=== PATIENT | female | born 1945 | race Caucasian/White ===

== ENCOUNTER 2018-11-17 16:05 | Emergency (ER) | payer MEDICARE ==
--- NOTE | 2018-11-17 17:09 | ED ---
Hypertension - HPI Summary HPI Summary: A 73 y/o female accompanied by her presents to [facility] with a chief complaint of high blood pressure today. She was at a pain clinic for pain in her back when her blood pressure was measured to be high for three times. Patient states that when he took it manually it was much better but still want her to get checked out. She was instructed to come to her PCP or to the ED and since her PCP couldnt see her immediately, she came to the ED. BP in ED room is 193/95. She reports fatigue but denies N/V/D, dysuria or hematuria. Patient denies chest pain or shortness of breath. Patient denies fevers or chills. No cough. She takes Losartan prescribed by Dr. Ghosh. She has been trying to not eat flour and sugar recently which she is not sure if it's affecting her tiredness. Patient does take morphine extended release 3 times a day as needed. Patient last dose was approximately 7:00 this morning. Patient does have immediate release that she can take for breakthrough pain. Patient hasn't taken any morphine since 7:00 this morning. Patient noted to have a prescription for Lasix. Patient states she ran out to stop taking Ecotrin feel bloated. Patient with a history of borderline kidney function, hypertension, chronic back pain. Patient denies a history of cardiac disease. Patient with previous seen by Dr. Butler but hasn't seen him in over a year. SHx tonsillectomy, two back surgeries, cataract removal. She reports that her BP was fine for surgery. She denies a Hx of [place]. Patient's medication reviewed this visit. - History of Current Complaint Chief Complaint: EDGeneral Stated Complaint: HIGH BP PER PT Time Seen by Provider: 11/17/18 16:18 Hx Obtained From: Patient Onset/Duration: Started Hours Ago, Still Present Timing: Constant, Lasting Hours Reported Blood Pressure Prior To Arrival: 225/77 at triage Aggravating Factor(s): Nothing Alleviating Factor(s): Nothing Associated Signs & Symptoms: Pain - back, Other: - fatigue - Allergies/Home Medications Allergies/Adverse Reactions: Allergies Allergy/AdvReac Type Severity Reaction Status Date / Time Tetracyclines Allergy Rash Verified 11/17/18 15:06 Home Medications: Home Medications BuPROPion XL* [Bupropion XL*] 300 mg PO DAILY 11/17/18 [History Confirmed ] Esomeprazole(NF) [NexIUM(NF)] 40 mg PO DAILY 11/17/18 [History Confirmed ] Losartan TAB* [Cozaar TAB*] 50 mg PO DAILY 11/17/18 [History Confirmed 11/17/18] Magnesium Oxide [Magnesium] 500 mg PO DAILY 11/17/18 [History Confirmed 11/17/18 ] Meloxicam(NF) [Mobic(NF)] 15 mg PO DAILY 11/17/18 [History Confirmed 11/17/18] Morphine Sulfate 15 mg PO TID 11/17/18 [History Confirmed 11/17/18] Sennosides/Docusate Sodium [Senna-S Tablet] 2 tab PO DAILY 11/17/18 [History Confirmed 11/17/18] Temazepam CAP* [Restoril CAP*] 15 mg PO BEDTIME PRN 11/17/18 [History Confirmed 11/17/18] PMH/Surg Hx/FS Hx/Imm Hx Previously Healthy: Yes Endocrine/Hematology History: Reports: Hx Anticoagulant Therapy - asa Cardiovascular History: Reports: Hx Hypertension, Other Cardiovascular Problems/ Disorders - Blood clots left leg GI History: Reports: Hx Gastroesophageal Reflux Disease History: Comment Only: Hx Renal Disease - abnormal gfr Musculoskeletal History: Reports: Hx Arthritis, Hx Back Problems Denies: Hx Osteoporosis Sensory History: Reports: Hx Contacts or Glasses Opthamlomology History: Reports: Hx Contacts or Glasses Neurological History: Reports: Other Neuro Impairments/Disorders - spinal tumor removed - Cancer History Hx Chemotherapy: No Hx Radiation Therapy: No - Surgical History Surgery Procedure, Year, and Place: benign SPINAL TUMOR 2006/DISCS REMOVES, LOWER BACK, BILATERAL CARPAL TUNNEL SX.?lysis of adhesions,henia repair as an infant Hx Anesthesia Reactions: No Infectious Disease History: No Infectious Disease History: Reports: Hx Shingles - comes on during stress Denies: Traveled Outside the [place] in Last 30 Days - Family History Known Family History: Negative: Diabetes - Social History Occupation: Retired Lives: With Family Alcohol Use: None Alcohol Amount: 1-2 drinks every couple months Substance Use Type: Reports: None Substance Use Comment - Amount & Last Used: Morphine and oxycodone Smoking Status (MU): Former Smoker Type: Cigarettes Have You Smoked in the Last Year: No Review of Systems Constitutional: Negative Positive: Fatigue. Negative: Fever Positive: Other - positive: high blood pressure Negative: Vomiting, Diarrhea, Nausea Negative: dysuria, hematuria All Other Systems Reviewed And Are Negative: Yes Physical Exam - Summary Physical Exam Summary: Vital Signs Reviewed: Yes - pt with elevated BP at triage. RN took manual BP at bedside with improvement in reading. A+Ox3, no distress, appropriate Eyes: Conjunctiva Clear, ROSSY. EOM intact and full ENT: Hearing grossly normal TM x 2 clear, mmoist, uvula midline, no exudate, no erythema Neck: Positive: Supple Respiratory: Positive: No respiratory distress, No accessory muscle use + CTA throughout no w/r Cardiovascular: RRR nl s1, s2 no m/r CBT <2 sec no m/r 1+ edema b/l LE not piting abd soft + BS nt/nd no guarding, no distension Musculoskeletal Exam: DENNIS x 4 without difficulty Strength Intact, ROM Intact, pt ambulated without difficulty Neurological: Positive: Alert, + sensation throughout Psychological: Positive: Normal Response To Family Skin: Positive: no rash, no ecchymosis Triage Information Reviewed: Yes Vital Signs On Initial Exam: Initial Vitals Temp Pulse Resp BP Pulse Ox 97.4 F 66 20 225/77 99 11/17/18 16:10 11/17/18 16:10 11/17/18 16:10 11/17/18 16:10 11/17/18 16:10 Diagnostics - Vital Signs Vital Signs Temp Pulse Resp BP Pulse Ox 11/17/18 16:10 97.4 F 66 20 225/77 99 - Laboratory Result Diagrams: 11/17/18 17:34 11/17/18 17:34 Lab Statement: Any lab studies that have been ordered have been reviewed, and results considered in the medical decision making process. Re-Evaluation - Re-Evaluation First Eval Re-Evaluation Time: 17:51 Change: Improved Comment: manual BP is markedly improved. pt ambulated to the bathroom twice without difficulty. Reviewed labs with patient. Patient with a slightly elevated potassium. Also patient with an elevated BUN/creatinine. Review of patient's records urine creatinine is at baseline if not slightly improved. Patient's troponin is 0.05. Suspect this is related to kidney function. Patient has not had a troponin checked at [facility] and greater than 4 years. We will give patient gentle IV hydration and recheck the troponin at the 3 hour damion. Agents EKG is normal sinus any acute ST-T wave changes. Patient comfortable in agreement with plan. We'll prescribe patient Lasix and she states she went out. Encourage patient to contact her PCP in follow-up this week. Patient states agreement with plan. Return precautions discussed. Hypertension Course/Dx - Course Course Of Treatment: Patient presents to emergency department at the direction pain specialist. Patient with history of chronic pain, hypertension, opiates use for her pain, chronic renal insufficiency who states over the last week or so she's been feeling more fatigued. Patient denies chest pain or shortness of breath. Patient has nausea vomiting. Patient was at her scheduled pain management appointment today when he knows her blood pressure was very high. Of note, patient states blood pressure was much better when taken manually. Patient did take O certain this morning. Patient has a prescription for Lasix but she has stopped taking it. Patient without any fevers or chills. Patient without any chest pain. Patient's exam non-concerning except for some edema in her lower extremities. Patient's lungs are clear heart is regular belly is soft. We'll check labs, we will check urine. Discussed with patient at length. If testing is unremarkable and despite we'll discharge home to follow up with Dr. Ta. Patient comfortable in agreement with plan. I did discuss with patient regarding her opiates and allergies maybe contributing to her sedation. Patient takes her scheduled tablet 3 times a day. Patient states however she takes half a tablet for her breakthrough pain that she cut in half. Patient states sometimes she bites of half an is not regulated amount. - Diagnoses Provider Diagnoses: HTN (hypertension) Discharge - Sign-Out/Discharge Documenting (check all that apply): Sign-Out Patient Signing out patient TO: Eddie Jimenez Patient Received Moderate/Deep Sedation with Procedure: No - Discharge Plan Condition: Stable Disposition: HOME Prescriptions: Furosemide [Lasix] 10 mg PO DAILY #21 tablet Patient Education Materials: Hypertension (ED), Fatigue (ED) Referrals: Hailee Ghosh MD [Primary Care Provider] - Additional Instructions: INCREASE LOSARTAN DOSE FROM 50 MG to 100 MG a DAY or RESUME TAKING LASIX RETURN TO THE EMERGENCY DEPARTMENT FOR CHANGING OR WORSENING SYMPTOMS. FOLLOW UP WITH YOUR PRIMARY CARE PROVIDER WITHIN 1 TO 2 DAYS. - Billing Disposition and Condition Condition: STABLE Disposition: Home - Attestation Statements Document Initiated by Scribe: Yes Documenting Scribe: Raz Jackson Provider For Whom Scribe is Documenting (Include Credential): Li Jean MD Scribe Attestation: I, Raz Jackson, scribed for Li Jean MD on 11/22/18 at 0803. Scribe Documentation Reviewed: Yes Provider Attestation: The documentation as recorded by the Raz trinh accurately reflects the service I personally performed and the decisions made by me, Li Jean MD Status of Scribe Document: Viewed
[2018-11-17 17:43] LABS: ABS Basophils 0.1 10^3/ul (0-0.2); ABS Eosinophils 0.1 10^3/ul (0-0.6); ABS Lymphocytes 1.2 10^3/ul (1.0-4.8); ABS Monocytes 0.3 10^3/ul (0-0.8); ABS Nucleated RBC 0 10^3/ul; Eosinophil % 2.8 %; Hematocrit 36 % (33-41); Hemoglobin 11.8 g/dL (12.0-16.0); Lymphocyte % 26.5 %; Mean Corpuscular HGB Conc 33 g/dL (31-36); Mean Corpuscular Hemoglobin 28 pg (27-31); Mean Corpuscular Volume 85 fL (80-97); Mean Platelet Volume 8.6 fL (7.4-10.4); Nucleated Red Blood Cells % 0.1; Platelet Count 168 10^3/uL (150-450); Red Blood Count 4.25 10^6 /uL (3.70-4.87); Red Cell Distribution Width 15 % (10.5-15); White Blood Count 4.7 10^3/uL (3.5-10.8)
[2018-11-17 18:00] LABS: ALT 68 U/L (7-52); AST 68 U/L (13-39); Albumin 3.8 g/dL (3.2-5.2); Albumin/Globulin Ratio 1.1 (1-3); Alkaline Phosphatase 107 U/L (34-104); BUN/Creatinine Ratio 25.5 (8-20); Blood Urea Nitrogen 35 mg/dL (6-24); CO2 Carbon Dioxide 25 mmol/L (22-32); Calcium 9.5 mg/dL (8.6-10.3); Chloride 107 mmol/L (101-111); Creatine Kinase 92 U/L (10-223); Globulin 3.6 g/dL (2-4); Glucose 96 mg/dL (70-100); Magnesium 2.5 mg/dL (1.9-2.7); Sodium 135 mmol/L (135-145); Total Protein 7.4 g/dL (6.4-8.9)
[2018-11-17 18:08] LABS: Anion Gap 3 mmol/L (2-11); Potassium 5.3 mmol/L (3.5-5.0)
[2018-11-17 18:09] LABS: Troponin I 0.05 ng/mL (<0.04)
[2018-11-17] MEDS ORDERED: NS 0.9% 1000 ML** 1,000 ML IV SCH (18:30)
[2018-11-17 19:00] LABS: Urine Appearance Clear; Urine Bacteria Absent (Absent); Urine Bilirubin Negative (Negative); Urine Blood 1+ (Negative); Urine Color Straw; Urine Glucose Negative (Negative); Urine Ketones Negative (Negative); Urine Nitrite Negative (Negative); Urine Protein Negative (Negative); Urine Red Blood Cell Trace(0-2/hpf) (Absent); Urine Specific Gravity 1.006 (1.010-1.030); Urine Squamous Epithelial Cell Present (Absent); Urine Urobilinogen Negative (Negative); Urine White Blood Cell Absent (Absent)
[2018-11-17 21:02] LABS: Troponin I 0.05 ng/mL (<0.04)
--- NOTE | 2018-11-17 21:13 | ED ---
Progress - Progress Note Progress Note: The patient is a 73 year old female who was signed out by Dr. Jean to Dr. Jimenez. The patient had a chief complaint of HTN and was awaiting lab results. Re-Evaluation - Re-Evaluation First Eval Re-Evaluation Time: 17:51 Change: Improved Comment: manual BP is markedly improved. pt ambulated to the bathroom twice without difficulty. Reviewed labs with patient. Patient with a slightly elevated potassium. Also patient with an elevated BUN/creatinine. Review of patient's records urine creatinine is at baseline if not slightly improved. Patient's troponin is 0.05. Suspect this is related to kidney function. Patient has not had a troponin checked at [facility] and greater than 4 years. We will give patient gentle IV hydration and recheck the troponin at the 3 hour damion. Agents EKG is normal sinus any acute ST-T wave changes. Patient comfortable in agreement with plan. We'll prescribe patient Lasix and she states she went out. Encourage patient to contact her PCP in follow-up this week. Patient states agreement with plan. Return precautions discussed. Course/Dx - Course Course Of Treatment: The patient is a 73 year old female who was signed out by Dr. Jean to Dr. Jimenez. We discussed the patients elevated troponin finding which was mildly elevated and most likely due to her kidney function. The patient was advised to increase her Losartan from 50 mg a day to 100 mg a day. The other option we presented to the patient was to resume taking her Lasix medication. The patient was agreeable to this plan and she will be discharged home with a dx of HTN. - Diagnoses Provider Diagnoses: HTN (hypertension) Discharge - Sign-Out/Discharge Documenting (check all that apply): Patient Departure - Discharge Home, Receiving Sign-Out Receiving patient FROM: Li Jean Patient Received Moderate/Deep Sedation with Procedure: No - Discharge Plan Condition: Stable Disposition: HOME Prescriptions: Furosemide [Lasix] 10 mg PO DAILY #21 tablet Patient Education Materials: Hypertension (ED), Fatigue (ED) Referrals: Hailee Ghosh MD [Primary Care Provider] - Additional Instructions: INCREASE LOSARTAN DOSE FROM 50 MG to 100 MG a DAY or RESUME TAKING LASIX RETURN TO THE EMERGENCY DEPARTMENT FOR CHANGING OR WORSENING SYMPTOMS. FOLLOW UP WITH YOUR PRIMARY CARE PROVIDER WITHIN 1 TO 2 DAYS. - Billing Disposition and Condition Condition: STABLE Disposition: Home - Attestation Statements Document Initiated by Scribe: Yes Documenting Scribe: Aman Baez Provider For Whom Scribe is Documenting (Include Credential): Dr. Eddie Jimenez Scribe Attestation: IAman, scribed for Dr. Eddie Jimenez on 11/18/18 at 0607. Scribe Documentation Reviewed: Yes Provider Attestation: The documentation as recorded by the ushaibeAman accurately reflects the service I personally performed and the decisions made by Dr. Gary [email or web address] Status of Scribe Document: Viewed
[2018-11-17 21:41] VITALS: BP 182/92
== END 2018-11-17 21:40 | disposition home or self-care (01) ==
LOC: ED 16:05
DX: I10 Essential (primary) hypertension (principal); K21.9 Gastro-esophageal reflux disease without esophagitis; M19.90 Unspecified osteoarthritis, unspecified site; M54.9 Dorsalgia, unspecified; G89.29 Other chronic pain; Z88.8 Allergy status to other drugs, medicaments and biological substances; Z79.82 Long term (current) use of aspirin; Z79.899 Other long term (current) drug therapy; Z87.891 Personal history of nicotine dependence
CPT/HCPCS: 36415; 80053; 81003; 81015; 82550; 83735; 84484; 85025; 93005; 99283

== ENCOUNTER 2019-10-04 11:49 | Emergency (ER) | payer MEDICARE ==
[2019-10-04 12:02] VITALS: BP 182/69
--- NOTE | 2019-10-04 12:32 | UC ---
Abdominal Pain Female HPI - HPI Summary HPI Summary: 74 yo female presents with abdominal pain. She tells me that this morning she woke up and noticed periumbilical pain that has been getting worse since beginning. She ate breakfast around 0800 - did not change pain. Last BM was yesterday. Pain is worse with moving and touching the area. Pain radiates into right flank. She states she had an abdominal hernia repair as an infant, but no abdominal surgeries since. She denies fever, chills, SOB, chest pain, n/v, dysuria. - History of Current Complaint Chief Complaint: UCAbdominalPain Stated Complaint: ABDOMINAL PAIN Time Seen by Provider: 10/04/19 12:32 Hx Obtained From: Patient Onset/Duration: Sudden Onset Severity Initially: Moderate Severity Currently: Moderate Pain Intensity: 7 Pain Scale Used: 0-10 Numeric Allergies/Adverse Reactions: Allergies Allergy/AdvReac Type Severity Reaction Status Date / Time Tetracyclines Allergy Rash Verified 10/04/19 12:02 Home Medications: Home Medications Docusate CAP* [Colace Cap*] 200 mg PO DAILY PRN 05/14/18 [History Confirmed 10/20] BuPROPion XL* [Bupropion XL*] 300 mg PO DAILY 11/17/18 [History Confirmed ] Esomeprazole(NF) [NexIUM(NF)] 40 mg PO DAILY 11/17/18 [History Confirmed ] Losartan TAB* [Cozaar TAB*] 50 mg PO DAILY 11/17/18 [History Confirmed 10/04/19] Temazepam CAP* [Restoril CAP*] 15 mg PO BEDTIME PRN 11/17/18 [History Confirmed 10/04/19] Morphine Sulfate 15 mg PO QID MDD 4 01/06/19 [History Confirmed 10/04/19] Morphine Sulfate [Ms Contin] 15 mg PO DAILY 04/27/19 [History Confirmed 10/04/19 ] Morphine Sulfate [Ms Contin] 60 mg PO BID 04/27/19 [History Confirmed 10/04/19] Furosemide [Lasix] 10 mg PO EVERY OTHER DAY PRN 09/21/19 [History Confirmed 10/20] PMH/Surg Hx/FS Hx/Imm Hx - Additional Past Medical History Additional PMH: Chronic pain - Surgical History Surgical History: Yes Surgery Procedure, Year, and Place: benign SPINAL TUMOR 2006/DISCS REMOVES, LOWER BACK, BILATERAL CARPAL TUNNEL SX.?lysis of adhesions,henia repair as an - Family History Known Family History: Negative: Diabetes - Social History Lives: With Family Alcohol Use: None Alcohol Amount: 1-2 drinks every couple months Substance Use Type: None Substance Use Comment - Amount & Last Used: Morphine and oxycodone Smoking Status (MU): Former Smoker Type: Cigarettes Have You Smoked in the Last Year: No When Did the Patient Quit Smoking/Using Tobacco: 1968 Review of Systems All Other Systems Reviewed And Are Negative: No Constitutional: Positive: Negative Skin: Positive: Negative Respiratory: Positive: Negative Cardiovascular: Positive: Negative Gastrointestinal: Positive: Abdominal Pain Genitourinary: Positive: Negative Motor: Positive: Negative Neurological/Mental Status: Positive: Negative Psychological: Positive: Negative Physical Exam - Summary Physical Exam Summary: GENERAL: NAD. WDWN. No pain distress. SKIN: No rashes, sores, lesions, or open wounds. NECK: Supple. Nontender. No lymphadenopathy. CHEST: CTAB. No r/r/w. No accessory muscle use. Breathing comfortably and in no distress. CV: RRR. Pulses intact. Cap refill <2seconds ABDOMEN: Moderate TTP periumbilical region and RLQ. Soft. No distention or guarding. No CVA tenderness. Bowel sounds present. POSITIVE psoas sign. Negative rovsings. No pulsatile abdominal mass. NEURO: Alert. PSYCH: Age appropriate behavior. Triage Information Reviewed: Yes Vital Signs: Initial Vital Signs Temp 97.7 F 10/04/19 11:56 Pulse 55 10/04/19 11:56 Resp 18 10/04/19 11:56 BP 182/69 10/04/19 11:56 Pulse Ox 100 10/04/19 11:56 Vital Signs Reviewed: Yes Abd Pain Female Course/Dx - Course Course Of Treatment: DDx is large. Kidney stone, appendicitis, ovarian pathology, SBO, hernia, AAA, adhesions, chronic pain just to name a few. VSS. I recommend she go to the ER for further evaluation of her abdominal pain. She is agreeable with this and with her will drive her. - Differential Dx/Diagnosis Provider Diagnosis: Periumbilical abdominal pain Discharge ED - Sign-Out/Discharge Documenting (check all that apply): Patient Departure All imaging exams completed and their final reports reviewed: No Studies - Discharge Plan Condition: Stable Disposition: HOME-RECOMMEND TO ED Referrals: Hailee Ghosh MD [Primary Care Provider] - Additional Instructions: Please go to the ER for further evaluation of your abdominal pain - Billing Disposition and Condition Condition: STABLE Disposition: Home-Recommend to ED
== END 2019-10-04 12:50 | disposition home health service (06) ==
LOC: UCEAST 11:49
DX: R10.33 Periumbilical pain (principal); R10.31 Right lower quadrant pain; Z88.8 Allergy status to other drugs, medicaments and biological substances; Z87.891 Personal history of nicotine dependence
CPT/HCPCS: 99212; G0463

== ENCOUNTER 2019-10-04 13:11 | Observation (INO) | payer MEDICARE ==
[2019-10-04] MEDS ORDERED: NS 0.9% 1000 ML** 1,000 ML IV ONE ×2 (13:41→13:45)
[2019-10-04] MEDS ORDERED: Ondansetron INJ* 2 MG/ML VIAL IV ONE ×2 (13:41→13:42)
[2019-10-04] MEDS ORDERED: Morphine 4 MG/ML VIAL (1 ml) 4 MG/ML VIAL IV ONE (13:42)
--- NOTE | 2019-10-04 13:43 | ED ---
Abdominal Pain/Female - HPI Summary HPI Summary: Pt. is a 74 y.o female who presents to the ER for RLQ pain that started this morning. Associated sxs of chills and decreased appetite. Pt. denies CP, SOB, urinary sxs, vomiting, diarrhea. Past hx of HTN, obesity, GERD, HLD, depression. Pain is constant and worse with movement. Sxs are moderate in severity. - History of Current Complaint Chief Complaint: EDAbdPain Stated Complaint: ABDOMINAL PAIN PER PT Time Seen by Provider: 10/04/19 13:24 Pain Intensity: 8 Allergies/Adverse Reactions: Allergies Allergy/AdvReac Type Severity Reaction Status Date / Time Tetracyclines Allergy Rash Verified 10/04/19 12:02 Home Medications: Home Medications Docusate CAP* [Colace Cap*] 50 mg PO DAILY PRN 05/14/18 [History Confirmed 10/03] BuPROPion XL* [Bupropion XL*] 300 mg PO DAILY 11/17/18 [History Confirmed ] Esomeprazole(NF) [NexIUM(NF)] 40 mg PO DAILY 11/17/18 [History Confirmed ] Losartan TAB* [Cozaar TAB*] 100 mg PO DAILY 11/17/18 [History Confirmed 10/04/19 ] Temazepam CAP* [Restoril CAP*] 15 mg PO BEDTIME PRN 11/17/18 [History Confirmed 10/04/19] Furosemide [Lasix] 20 mg PO DAILY PRN 09/21/19 [History Confirmed 10/04/19] Aspirin EC TAB* [Ecotrin EC Low Dose 81 MG*] 81 mg PO DAILY 10/04/19 [History Confirmed 10/04/19] Meloxicam(NF) [Mobic(NF)] 15 mg PO DAILY 10/04/19 [History Confirmed 10/04/19] Morphine Sulfate 15 mg PO DAILY PRN 10/04/19 [History Confirmed 10/04/19] Morphine Sulfate [Morphabond ER] 15 mg PO DAILY PRN 10/04/19 [History Confirmed 10/04/19] Ondansetron TAB* [Zofran 4 MG Tab*] 4 mg PO Q6H PRN 10/04/19 [History Confirmed 10/04/19] Polyethylene Glycol 3350* [Miralax (17 GM DOSE DANELLE)] 17 gm PO DAILY PRN [History Confirmed 10/04/19] PMH/Surg Hx/FS Hx/Imm Hx Previously Healthy: Yes Endocrine/Hematology History: Reports: Hx Anticoagulant Therapy - asa Cardiovascular History: Reports: Hx Hypertension, Other Cardiovascular Problems/ Disorders - Blood clots left leg GI History: Reports: Hx Gastroesophageal Reflux Disease History: Comment Only: Hx Renal Disease - abnormal gfr Musculoskeletal History: Reports: Hx Arthritis, Hx Back Problems Denies: Hx Osteoporosis Sensory History: Reports: Hx Contacts or Glasses Opthamlomology History: Reports: Hx Contacts or Glasses Neurological History: Reports: Other Neuro Impairments/Disorders - spinal tumor removed - Cancer History Hx Chemotherapy: No Hx Radiation Therapy: No - Surgical History Surgery Procedure, Year, and Place: benign SPINAL TUMOR 2006/DISCS REMOVES, LOWER BACK, BILATERAL CARPAL TUNNEL SX.?lysis of adhesions,henia repair as an Hx Anesthesia Reactions: No Infectious Disease History: No Infectious Disease History: Reports: Hx Shingles - comes on during stress Denies: Traveled Outside the [place] in Last 30 Days - Family History Known Family History: Positive: Non-Contributory Negative: Diabetes - Social History Occupation: Retired Lives: With Family Alcohol Use: None Alcohol Amount: 1-2 drinks every couple months Substance Use Type: Reports: None Substance Use Comment - Amount & Last Used: Morphine and oxycodone Smoking Status (MU): Former Smoker Type: Cigarettes Have You Smoked in the Last Year: No Review of Systems Positive: Chills. Negative: Fever Cardiovascular: Negative Negative: Palpitations, Chest Pain Respiratory: Negative Negative: Shortness Of Breath, Cough Positive: Abdominal Pain. Negative: Vomiting, Diarrhea Genitourinary: Negative Negative: dysuria Neurological/Mental Status: Negative All Other Systems Reviewed And Are Negative: Yes Physical Exam Triage Information Reviewed: Yes Vital Signs On Initial Exam: Initial Vitals Temp Pulse Resp BP Pulse Ox 98.0 F 56 18 193/64 96 10/04/19 13:11 10/04/19 13:11 10/04/19 13:11 10/04/19 13:11 10/04/19 13:11 Vital Signs Reviewed: Yes Appearance: Positive: Pain Distress - Pt. lying in bed holding RLQ. Appears in pain but nontoxic. present. Skin: Positive: Warm, Dry Head/Face: Positive: Normal Head/Face Inspection Eyes: Positive: Normal, EOMI Neck: Positive: Supple Respiratory/Lung Sounds: Positive: Clear to Auscultation, Breath Sounds Present Cardiovascular: Positive: Normal, RRR Abdomen Description: Positive: Other: - Obese. Abd. is soft with marked tenderness to RLQ. Small reducible inferior ventral hernia. Neurological: Positive: Normal, CN Intact II-III Psychiatric: Positive: Affect/Mood Appropriate Procedures - Sedation Patient Received Moderate/Deep Sedation with Procedure: No Diagnostics - Vital Signs Vital Signs Temp Pulse Resp BP Pulse Ox 10/04/19 13:11 98.0 F 56 18 193/64 96 - Laboratory Result Diagrams: 10/04/19 14:04 10/04/19 14:04 Lab Statement: Any lab studies that have been ordered have been reviewed, and results considered in the medical decision making process. Abdominal Pain Fem Course/Dx - Course Course Of Treatment: ECG done at 1358 shows a sinus bradycardia of 55bpm, normal axis, no ST elevation. 1545: On re-exam pt. is feeling better and pain has improved. Pending surgical consult by Dr. Liao. IMPRESSION: 1. THERE IS DILATATION OF THE APPENDIX, WITHOUT APPRECIABLE PERIAPPENDICEAL INFLAMMATORY. CHANGE. THIS MAY REPRESENT EARLY ACUTE APPENDICITIS IN THE CORRECT CLINICAL SETTING. 2. FAT-CONTAINING ABDOMINAL HERNIA. 3. ATHEROSCLEROSIS. 4. HEPATOMEGALY WITH FATTY INFILTRATION OF THE LIVER. 5. STABLE BILIARY DILATATION. Labs show mild elevation in liver enzymes. Normal bilirubin and lipase. Pt. clinically fits dx of appendicitis. Pt. examined by surgeon, Dr. Liao , who [facility] Zosyn ordered. Pt. remained stable in ED. - Diagnoses Differential Diagnosis: Positive: Appendicitis, Bowel Obstruction, Constipation , Diverticulitis, Renal Colic, Urinary Tract Infection Provider Diagnoses: Appendicitis, Elevated liver enzymes, Hyperkalemia Discharge ED - Sign-Out/Discharge Documenting (check all that apply): Patient Departure - Discharge Plan Condition: Stable Disposition: ADMITTED TO [facility] Referrals: Hailee Ghosh MD [Primary Care Provider] - - Billing Disposition and Condition Condition: STABLE Disposition: Admitted to [facility] - Attestation Statements Provider Attestation: I was available for consultation for this patient. I did not evaluate the patient or participate in any medical decision making or disposition decisions unless I am specifically named in the chart as having consulted on the patient. If I have consulted on the patient, please see my own ED note on the patient encounter. Thaddeus Saldaña MD
[2019-10-04 14:26] LABS: ABS Eosinophils 0.1 10^3/ul (0-0.6); ABS Monocytes 0.3 10^3/ul (0-0.8); ABS Neutrophils 2.3 10^3/ul (1.5-7.7); Eosinophil % 2.8 %; Hematocrit 33 % (35-47); Hemoglobin 10.9 g/dL (12.0-16.0); Lymphocyte % 27.8 %; Mean Corpuscular HGB Conc 33 g/dL (31-36); Mean Corpuscular Hemoglobin 28 pg (27-31); Mean Corpuscular Volume 87 fL (80-97); Mean Platelet Volume 8.6 fL (7.4-10.4); Nucleated Red Blood Cells % 0.2; Platelet Count 178 10^3/uL (150-450); Red Blood Count 3.83 10^6 /uL (3.70-4.87); Red Cell Distribution Width 15 % (10-15); White Blood Count 3.7 10^3/uL (3.5-10.8)
[2019-10-04 14:34] LABS: Albumin 3.6 g/dL (3.2-5.2); Albumin/Globulin Ratio 0.9 (1-3); C Reactive Protein 4.99 mg/L (<8.01); Calcium 9.2 mg/dL (8.6-10.3); EGFR African American 46.6 (>60); EGFR Non-African American 38.5 (>60); Globulin 3.8 g/dL (2-4); Total Bilirubin 0.7 mg/dL (0.2-1.0); Total Protein 7.4 g/dL (6.4-8.9)
[2019-10-04 14:36] LABS: Potassium 5.5 mmol/L (3.5-5.0)
[2019-10-04 14:47] LABS: Urine Appearance Clear; Urine Bilirubin Negative (Negative); Urine Blood Negative (Negative); Urine Color Yellow; Urine Glucose Negative (Negative); Urine Ketones Negative (Negative); Urine Nitrite Negative (Negative); Urine Protein Negative (Negative); Urine Specific Gravity 1.009 (1.010-1.030); Urine Urobilinogen Negative (Negative)
[2019-10-04] MEDS ORDERED: Iodixanol* (CONTRAST) 320 MG/ML 100 ML SDV IV ONE (14:58)
[2019-10-04] MEDS ORDERED: Piperacillin/Tazobac ADVAN(*) 3.375 GM in NS 0.9% 100 ML* 100 ML IVPB ONE ×2 (16:46→22:30)
[2019-10-04] MEDS ORDERED: Piperacillin/Tazobac (*) 3.375 GM BAG ONE (17:06)
[2019-10-04] MEDS ORDERED: Ondansetron INJ* 2 MG/ML VIAL IV PRN ×2 (17:09→20:18)
[2019-10-04] MEDS ORDERED: HYDROmorphone INJ* 0.5 MG/0.5 ML SYRINGE IV SLOW PU PRN (17:09)
[2019-10-04] MEDS ORDERED: Docusate CAP* 100 MG PO PRN (17:09)
--- NOTE | 2019-10-04 17:14 | HP ---
H&P (Free Text) History and Physical: DATE OF ADMISSION: 10/04/19 REASON FOR ADMISSION: Acute appendicitis HPI: Lilia Mendez is a 74 year-old woman with a h/o HTN and chronic back pain who presents to the ED with RLQ abdominal pain. The pain started this morning. The pain was localized to the RLQ and periumbilical area. The pain is worse when she moves. She was able to eat breakfast at 7:30am. She denies nausea or vomiting. She denies diarrhea or constipation. She denies fevers. She went to urgent care first and then was sent to the ED. In the ED, CT scan showed dilated appendix but no periappendiceal stranding. WBC is normal. Of note, LFTs are elevated with normal total bilirubin. PMH: Chronic back pain, HTN, depression, hyperlipidemia, GERD PSH: Back surgeries x2, carpal tunnel surgery (bilateral), hernia repair as an . Home Medications Medication Instructions Recorded Confirmed Type Docusate CAP* [Colace Cap*] 50 mg PO DAILY PRN 05/14/18 10/04/19 History BuPROPion XL* [Bupropion XL*] 300 mg PO DAILY 11/17/18 10/04/19 History Esomeprazole(NF) [NexIUM(NF)] 40 mg PO DAILY 11/17/18 10/04/19 History Losartan TAB* [Cozaar TAB*] 100 mg PO DAILY 11/17/18 10/04/19 History Temazepam CAP* [Restoril CAP*] 15 mg PO BEDTIME PRN 11/17/18 10/04/19 History Furosemide [Lasix] 20 mg PO DAILY PRN 09/21/19 10/04/19 History Aspirin EC TAB* [Ecotrin EC Low 81 mg PO DAILY 10/04/19 10/04/19 History Dose 81 MG*] Meloxicam(NF) [Mobic(NF)] 15 mg PO DAILY 10/04/19 10/04/19 History Morphine Sulfate 15 mg PO DAILY PRN 10/04/19 10/04/19 History Morphine Sulfate [Morphabond ER] 15 mg PO DAILY PRN 10/04/19 10/04/19 History Ondansetron TAB* [Zofran 4 MG Tab*] 4 mg PO Q6H PRN 10/04/19 10/04/19 History Allergies Tetracyclines Allergy (Verified 10/04/19 12:02) Rash FH: Father had hemophilia but patient denies h/o severe bleeding or difficulty with clotting. Mother is alive and healthy. Sister has CAD and HI. SH: Patient lives with her . She works as hairdresser. She quit smoking over 30 years ago. She denies alcohol or drug use. ROS: 10-point review of systems was obtained. Pertinent positives and negatives are in the HPI. PHYSICAL EXAM: Vital Signs - 12 hr Temp Pulse Resp BP Pulse Ox 10/04/19 17:00 58 95 10/04/19 16:21 63 181/76 96 10/04/19 16:05 65 18 166/70 94 10/04/19 16:00 55 93 10/04/19 15:21 62 180/76 97 10/04/19 15:00 53 94 10/04/19 14:17 18 10/04/19 14:00 60 96 10/04/19 13:41 53 192/79 98 10/04/19 13:32 60 98 10/04/19 13:11 98.0 F 56 18 193/64 96 General: NAD, lying in on stretcher. Head: Normocephalic and atraumatic. Eyes: Pupils equal. No scleral icterus. Mouth: Moist mucous membranes. Neck: Supple. Trachea midline. CV: RRR Chest: Clear to auscultation. No accessory muscle use. Abdomen: Soft, obese. Tenderness to palpation in RLQ and periumbilical area. No guarding or rebound. Extremities: Warm. No pedal edema. Skin: Warm and dry. Intact. Neuro: Alert and oriented x3. Moves all extremities equally. Psych: Normal affect. Laboratory Results - last 24 hr 10/04/19 10/04/19 10/04/19 14:04 14:04 14:04 WBC 3.7 RBC 3.83 Hgb 10.9 L Hct 33 L MCV 87 MCH 28 MCHC 33 RDW 15 Plt Count 178 MPV 8.6 Neut % (Auto) 60.6 Lymph % (Auto) 27.8 [place] % (Auto) 7.7 Eos % (Auto) 2.8 Baso % (Auto) 1.1 Absolute Neuts (auto) 2.3 Absolute Lymphs (auto) 1.0 Absolute Monos (auto) 0.3 Absolute Eos (auto) 0.1 Absolute Basos (auto) 0.0 Absolute Nucleated RBC 0.0 Nucleated RBC % 0.2 Sodium 136 Potassium 5.5 H Chloride 110 Carbon Dioxide 23 Anion Gap 3 BUN 23 Creatinine 1.35 H Est GFR ( Amer) 46.6 Est GFR (Non-Af Amer) 38.5 BUN/Creatinine Ratio 17.0 Glucose 96 Lactic Acid 0.4 L Calcium 9.2 Total Bilirubin 0.70 AST 244 H ALT 260 H Alkaline Phosphatase 304 H C-Reactive Protein 4.99 Total Protein 7.4 Albumin 3.6 Globulin 3.8 Albumin/Globulin Ratio 0.9 L Lipase 10 L Urine Color Urine Appearance Urine pH Ur Specific [place] Urine Protein Urine Ketones Urine Blood Urine Nitrate Urine Bilirubin Urine Urobilinogen Ur Leukocyte Esterase Urine Glucose 10/04/19 14:30 WBC RBC Hgb Hct MCV MCH MCHC RDW Plt Count MPV Neut % (Auto) Lymph % (Auto) [place] % (Auto) Eos % (Auto) Baso % (Auto) Absolute Neuts (auto) Absolute Lymphs (auto) Absolute Monos (auto) Absolute Eos (auto) Absolute Basos (auto) Absolute Nucleated RBC Nucleated RBC % Sodium Potassium Chloride Carbon Dioxide Anion Gap BUN Creatinine Est GFR ( Amer) Est GFR (Non-Af Amer) BUN/Creatinine Ratio Glucose Lactic Acid Calcium Total Bilirubin AST ALT Alkaline Phosphatase C-Reactive Protein Total Protein Albumin Globulin Albumin/Globulin Ratio Lipase Urine Color Yellow Urine Appearance Clear Urine pH 6.0 Ur Specific [place] 1.009 L Urine Protein Negative Urine Ketones Negative Urine Blood Negative Urine Nitrate Negative Urine Bilirubin Negative Urine Urobilinogen Negative Ur Leukocyte Esterase Negative Urine Glucose Negative CT abd/pelv- dilated appendix but no periappendiceal fat. A&P 74F with earlyl acute appendicitis. The exam and CT scan are consistent with appendicitis, although WBC is normal. I discussed surgery vs antibiotics. Risks of surgery were discussed including but not limited to bleeding, infection, bowel injury, or anesthesia risks. I talked about treating with antibiotics alone and the risk that the appendicitis does not resolve or that it recurs in the future. She is agreeable to proceeding with surgery. -OR today for laparoscopic appendectomy, possible open. -NPO
[2019-10-04] MEDS ORDERED: NS 0.9% 1000 ML** 1,000 ML IV SCH ×2 (17:15→22:15)
[2019-10-04] MEDS ORDERED: Buffered Lidocaine 1% SYRIN* 1 ML/SYRINGE INTRADERM ONE (20:07)
[2019-10-04] MEDS ORDERED: Acetaminophen TAB* 325 MG PO PRN (20:21)
[2019-10-04] MEDS ORDERED: Lactated Ringers 1000 ML Bag* 1,000 ML IV SCH (21:00)
[2019-10-05] MEDS ORDERED: DiMENhydriNATE IV* 50 MG/ML VIAL IV PUSH PRN (00:01)
[2019-10-05] MEDS ORDERED: Naloxone* 0.4 MG/ML 1 ML VIAL IV PRN (00:01)
[2019-10-05] MEDS ORDERED: PROCHLORPERAZINE INJ 5 MG/ML 2 ML VIAL IV PRN (00:01)
--- NOTE | 2019-10-05 00:36 | BRIEFOPN ---
Brief Operative/Procedure Note - Operation Details Pre-Op Diagnosis: Acute appendicitis Post-Op Diagnosis: Same Procedures: Laparoscopic appendectomy Surgeon(s)/Proceduralists: Sweetie Liao MD Anesthesia: General. Dr Bejarano. Estimated Blood Loss: Minimal Findings: Inflamed appendix, no evidence of perforation Specimen(s)/Culture(s) Description: Appendix Complications: None
[2019-10-05] MEDS: fentaNYL* 50 MCG/ML 2 ML VIAL (100 MCG VIAL) IV PRN ×2 (00:47→00:54)
[2019-10-05] MEDS ORDERED: Morphine ORAL.SOLN 10 mg* 2 MG/ML UDC 5 ml PO PRN (02:00)
--- NOTE | 2019-10-05 03:19 | OP ---
DATE OF OPERATION: 10/04/19 - ROOM #350 DATE OF : 49 PRE-OP DIAGNOSIS: Acute appendicitis. POST-OP DIAGNOSIS: Acute appendicitis. OPERATIVE PROCEDURE: Laparoscopic appendectomy. SURGEON: Sweetie Liao MD. ANESTHESIA: General. ESTIMATED BLOOD LOSS: Minimal. FINDINGS: Inflamed appendix without evidence of perforation. INDICATIONS: Lilia Mendez is a 74-year-old woman with a history of hypertension and chronic back pain, who presented to the ED with right lower quadrant abdominal pain that started this morning. In the ED, she underwent CT scan, which showed a dilated appendix without periappendiceal fat stranding. Her white blood cell count was normal, but her exam also fit the diagnosis of acute appendicitis. I discussed laparoscopic, possible open appendectomy. Risks were discussed including, but not limited to, bleeding, infection, bowel injury, or anesthetic complications. I also talked about managing with antibiotics alone and the risk of treatment failure recurrence in the future. The patient decided to proceed with surgery. DESCRIPTION OF PROCEDURE: The patient was brought to the OR and placed in the supine position on the OR table. SCDs were placed. The patient was warmed. Zosyn was given. General anesthesia was administered. The abdomen was prepped and draped in the usual sterile fashion. A time-out was called to confirm the patient's name, date of , and procedure. A transverse incision through the umbilicus was made after injecting 0.25% Marcaine. The subcutaneous tissue was bluntly dissected away. The fascia was elevated with 2 Cristiano clamps. A scalpel was used to open the fascia transversely. The peritoneum was entered bluntly. A 12-mm trocar was placed into the abdomen. Pneumoperitoneum was achieved to 15 mmHg. The camera was placed through the trocar. There was omentum that was adhesed to the anterior abdominal wall just inferior to the umbilicus. A 5-mm trocar was placed under direct visualization in the left lower quadrant. Another 5-mm trocar was placed in the suprapubic region under direct visualization. The appendix was found in the right lower quadrant. The adhesions were left alone as they did not obstruct my view of the field. The appendix was elevated. A window was created in the mesentery with blunt dissection. An [place] stapler with a 45- mm [place] load was used to divide the appendix at the base. A LigaSure was used to divide the mesoappendix. The appendix was placed in a specimen bag and removed from the abdomen. It was passed off to Pathology. The staple line was examined as well as the mesoappendix. There was good hemostasis. The 5-mm trocars were removed under direct visualization, and there was no evidence of bleeding. The 12-mm trocar was removed. 0 Vicryl was used to close the fascia using interrupted sutures. The skin was closed with a running 4-0 Monocryl suture. The 5-mm trocar sites were closed with interrupted 4-0 Monocryl sutures. The incisions were covered with Steri-Strips. Needle and sponge counts were correct. The patient was extubated, brought to Recovery in stable condition. [id number]/[facility] #: [id number]
[2019-10-05 08:43] VITALS: BP 154/61
[2019-10-05] MEDS ORDERED: Aspirin EC TAB* 81 MG TAB.EC PO SCH (09:00)
[2019-10-05] MEDS ORDERED: Losartan TAB* 25 MG PO SCH (09:00)
[2019-10-05] MEDS ORDERED: Morphine TAB Extended Release (*) 30 MG TAB.ER PO SCH (09:00)
[2019-10-05] MEDS ORDERED: BuPROPion XL* 300 MG TAB.XL PO SCH (09:00)
[2019-10-05] MEDS ORDERED: Pantoprazole TAB * 40 MG TAB PO SCH (09:00)
[2019-10-05 09:13] LABS: Albumin 3.6 g/dL (3.2-5.2); Albumin/Globulin Ratio 0.9 (1-3); BUN/Creatinine Ratio 15.3 (8-20); Calcium 9.3 mg/dL (8.6-10.3); EGFR African American 48.3 (>60); EGFR Non-African American 39.9 (>60); Globulin 4.1 g/dL (2-4); Potassium 5.7 mmol/L (3.5-5.0); Total Bilirubin 0.8 mg/dL (0.2-1.0); Total Protein 7.7 g/dL (6.4-8.9)
--- NOTE | 2019-10-05 09:44 | DS ---
ADMIT DATE: 10/04/19 DISCHARGE DATE: 10/05/19 REASON FOR ADMISSION: Acute appendicitis PATIENT CONDITION: Stable PHYSICAL EXAM: General: No acute distress. Abdomen: Soft, obese. Minimal tenderness to palpation. Minimal serosanguineous drainage on the Steri-Strips. Extremities: Warm. No pedal edema. Neuro: Alert and oriented 3. Moving all extremities equally. Psych: Normal affect. LABORATORY FINDINGS: Laboratory Results - last 24 hr 10/04/19 10/04/19 10/04/19 14:04 14:04 14:04 WBC 3.7 RBC 3.83 Hgb 10.9 L Hct 33 L MCV 87 MCH 28 MCHC 33 RDW 15 Plt Count 178 MPV 8.6 Neut % (Auto) 60.6 Lymph % (Auto) 27.8 [place] % (Auto) 7.7 Eos % (Auto) 2.8 Baso % (Auto) 1.1 Absolute Neuts (auto) 2.3 Absolute Lymphs (auto) 1.0 Absolute Monos (auto) 0.3 Absolute Eos (auto) 0.1 Absolute Basos (auto) 0.0 Absolute Nucleated RBC 0.0 Nucleated RBC % 0.2 Sodium 136 Potassium 5.5 H Chloride 110 Carbon Dioxide 23 Anion Gap 3 BUN 23 Creatinine 1.35 H Est GFR ( Amer) 46.6 Est GFR (Non-Af Amer) 38.5 BUN/Creatinine Ratio 17.0 Glucose 96 Lactic Acid 0.4 L Calcium 9.2 Total Bilirubin 0.70 AST 244 H ALT 260 H Alkaline Phosphatase 304 H C-Reactive Protein 4.99 Total Protein 7.4 Albumin 3.6 Globulin 3.8 Albumin/Globulin Ratio 0.9 L Lipase 10 L Urine Color Urine Appearance Urine pH Ur Specific [place] Urine Protein Urine Ketones Urine Blood Urine Nitrate Urine Bilirubin Urine Urobilinogen Ur Leukocyte Esterase Urine Glucose 10/04/19 10/04/19 10/05/19 14:30 18:09 08:37 WBC RBC Hgb Hct MCV MCH MCHC RDW Plt Count MPV Neut % (Auto) Lymph % (Auto) [place] % (Auto) Eos % (Auto) Baso % (Auto) Absolute Neuts (auto) Absolute Lymphs (auto) Absolute Monos (auto) Absolute Eos (auto) Absolute Basos (auto) Absolute Nucleated RBC Nucleated RBC % Sodium 136 Potassium 5.7 H Chloride 109 Carbon Dioxide 21 L Anion Gap 6 BUN 20 Creatinine 1.31 H Est GFR ( Amer) 48.3 Est GFR (Non-Af Amer) 39.9 BUN/Creatinine Ratio 15.3 Glucose 106 H Lactic Acid 0.4 L Calcium 9.3 Total Bilirubin 0.80 AST 195 H ALT 230 H Alkaline Phosphatase 291 H C-Reactive Protein Total Protein 7.7 Albumin 3.6 Globulin 4.1 H Albumin/Globulin Ratio 0.9 L Lipase Urine Color Yellow Urine Appearance Clear Urine pH 6.0 Ur Specific [place] 1.009 L Urine Protein Negative Urine Ketones Negative Urine Blood Negative Urine Nitrate Negative Urine Bilirubin Negative Urine Urobilinogen Negative Ur Leukocyte Esterase Negative Urine Glucose Negative PROCEDURE: Laparoscopic appendectomy HOSPITAL COURSE: Lilia Mendez is a 74-year-old woman who presented to the ED with right lower quadrant abdominal pain that started the morning of admission. In the ED, WBC was normal. However, CT scan suggested early appendicitis with a dilated appendix. There was no periappendiceal fat stranding. Zosyn was started. The patient was brought to the OR for laparoscopic appendectomy on 10/04/19. Postoperatively, she was started on a regular diet. Her home pain regimen was restarted, and pain was well controlled. On admission, her LFTs were elevated. Follow-up CMP on POD 1 showed that they were trending down. Her potassium was also mildly elevated, although she was asymptomatic. She was instructed to see her primary care physician within a week of discharge to follow up on LFTs and potassium. DISPOSITION: Home DISCHARGE INSTRUCTIONS: See pre-printed directions. CC: Hailee Ghosh
== END 2019-10-05 11:15 | disposition home or self-care (01) ==
LOC: ED 13:11 → SSU 17:10 → ED 18:16
PROVIDERS: ADMIT Surgery Surgical Critical Care; ATTEND Surgery Surgical Critical Care
DX: K35.80 Unspecified acute appendicitis (principal); K57.90 Diverticulosis of intestine, part unspecified, without perforation or abscess without bleeding; R10.31 Right lower quadrant pain; I10 Essential (primary) hypertension; E66.9 Obesity, unspecified; K21.9 Gastro-esophageal reflux disease without esophagitis; E78.5 Hyperlipidemia, unspecified; F32.9 Major depressive disorder, single episode, unspecified; Z79.82 Long term (current) use of aspirin; Z79.899 Other long term (current) drug therapy; Z88.1 Allergy status to other antibiotic agents; Z86.718 Personal history of other venous thrombosis and embolism; Z87.891 Personal history of nicotine dependence; R94.5 Abnormal results of liver function studies; E87.5 Hyperkalemia
CPT/HCPCS: 36415; 71045; 74177; 80053; 81003; 83605; 83690; 85025; 86140; 88304; 93005; 96361; 96374; 96375; 99284; A9270-GY; G0378; J1170; J2270; J2405; J2543; Q9967

== ENCOUNTER 2020-04-02 06:59 | Inpatient (IN) ==
[2020-04-02 08:45] LABS: ABS Basophils 0.1 10^3/ul (0-0.2); ABS Eosinophils 0.2 10^3/ul (0-0.6); ABS Monocytes 0.4 10^3/ul (0-0.8); ABS Neutrophils 4.8 10^3/ul (1.5-7.7); Eosinophil % 3.2 %; Hematocrit 34 % (35-47); Hemoglobin 11.4 g/dL (12.0-16.0); Lymphocyte % 15.2 %; Mean Corpuscular HGB Conc 34 g/dL (31-36); Mean Corpuscular Hemoglobin 29 pg (27-31); Mean Corpuscular Volume 87 fL (80-97); Mean Platelet Volume 8.9 fL (7.4-10.4); Platelet Count 159 10^3/uL (150-450); Red Blood Count 3.88 10^6 /uL (3.70-4.87); Red Cell Distribution Width 15 % (10-15); White Blood Count 6.5 10^3/uL (3.5-10.8)
[2020-04-02 08:47] LABS: Urine Appearance Clear; Urine Bilirubin Negative (Negative); Urine Blood Negative (Negative); Urine Color Straw; Urine Glucose Negative (Negative); Urine Ketones Negative (Negative); Urine Nitrite Negative (Negative); Urine Protein Negative (Negative); Urine Specific Gravity 1.008 (1.010-1.030); Urine Urobilinogen Negative (Negative)
[2020-04-02 09:02] LABS: Albumin 3.9 g/dL (3.2-5.2); Albumin/Globulin Ratio 0.9 (1-3); BUN/Creatinine Ratio 12.8 (8-20); Calcium 9.7 mg/dL (8.6-10.3); EGFR African American 44.2 (>60); EGFR Non-African American 36.6 (>60); Globulin 4.2 g/dL (2-4); Magnesium 2.1 mg/dL (1.9-2.7); Potassium 4.5 mmol/L (3.5-5.0); Total Bilirubin 0.7 mg/dL (0.2-1.0); Total Protein 8.1 g/dL (6.4-8.9); Troponin I 0.02 ng/mL (<0.03)
[2020-04-02] MEDS ORDERED: Ondansetron 4 mg VIAL 2 MG/ML 2 ml VIAL IV ONE (09:19)
[2020-04-02] MEDS ORDERED: Iodixanol (CONTRAST) 320 MG/ML 100 ML SDV IV ONE (09:21)
[2020-04-02] MEDS ORDERED: Furosemide 20 mg/2 ml IV VIAL IV SLOW PU ONE ×2 (09:38→12:41)
[2020-04-02] MEDS ORDERED: Senna TAB 8.6 mg TAB PO PRN (12:35)
[2020-04-02] MEDS ORDERED: Morphine ER 15 mg TAB ** extended release PO PRN (12:38)
[2020-04-02 13:19] LABS: C Reactive Protein 7.1 mg/L (<8.01)
[2020-04-02] MEDS: Enoxaparin 30 MG/0.3 ML SYR SUBCUT SCH (14:24)
[2020-04-02 14:39] LABS: Erythrocyte Sed Rate 38 mm/Hr (0-29)
[2020-04-02] MEDS: Morphine ORAL.SOLN 10 mg 2 mg/ml UDC 5 ml (10 mg) PO PRN (19:58)
[2020-04-02] MEDS: Morphine ER 30 mg TAB ** extended release PO PRN (21:33)
[2020-04-03] MEDS: Morphine ORAL.SOLN 10 mg 2 mg/ml UDC 5 ml (10 mg) PO PRN ×2 (05:08→13:49)
[2020-04-03 05:36] LABS: ABS Eosinophils 0.2 10^3/ul (0-0.6); ABS Lymphocytes 1.6 10^3/ul (1.0-4.8); ABS Monocytes 0.4 10^3/ul (0-0.8); ABS Neutrophils 2.9 10^3/ul (1.5-7.7); Eosinophil % 3.6 %; Hematocrit 34 % (35-47); Hemoglobin 11.5 g/dL (12.0-16.0); Lymphocyte % 31.1 %; Mean Corpuscular HGB Conc 34 g/dL (31-36); Mean Corpuscular Hemoglobin 30 pg (27-31); Mean Corpuscular Volume 87 fL (80-97); Mean Platelet Volume 9.3 fL (7.4-10.4); Nucleated Red Blood Cells % 0.1; Platelet Count 154 10^3/uL (150-450); Red Blood Count 3.89 10^6 /uL (3.70-4.87); Red Cell Distribution Width 15 % (10-15); White Blood Count 5.2 10^3/uL (3.5-10.8)
[2020-04-03 05:51] LABS: Calcium 9.4 mg/dL (8.6-10.3); EGFR African American 40.3 (>60); EGFR Non-African American 33.3 (>60); HDL Cholesterol 66.5 mg/dL; Magnesium 2.2 mg/dL (1.9-2.7); Potassium 4.3 mmol/L (3.5-5.0)
[2020-04-03] MEDS: Aspirin EC 81 mg TAB.EC (enteric coated) PO SCH (08:21)
[2020-04-03] MEDS: Furosemide 40 mg/4 ml IV VIAL IV SLOW PU SCH (08:23)
[2020-04-03] MEDS: Morphine ER 30 mg TAB ** extended release PO PRN ×2 (08:29→21:06)
[2020-04-03] MEDS: Enoxaparin 30 MG/0.3 ML SYR SUBCUT SCH (12:27)
[2020-04-04] MEDS: Morphine ORAL.SOLN 10 mg 2 mg/ml UDC 5 ml (10 mg) PO PRN (03:33)
[2020-04-04] MEDS: Morphine ER 30 mg TAB ** extended release PO PRN (09:09)
[2020-04-04] MEDS: Furosemide 40 mg/4 ml IV VIAL IV SLOW PU SCH (09:10)
[2020-04-04] MEDS: Aspirin EC 81 mg TAB.EC (enteric coated) PO SCH (09:10)
[2020-04-04 09:29] LABS: Hematocrit 38 % (35-47); Hemoglobin 12.6 g/dL (12.0-16.0); Mean Corpuscular HGB Conc 34 g/dL (31-36); Mean Corpuscular Hemoglobin 29 pg (27-31); Mean Corpuscular Volume 87 fL (80-97); Mean Platelet Volume 8.8 fL (7.4-10.4); Platelet Count 224 10^3/uL (150-450); Red Blood Count 4.31 10^6 /uL (3.70-4.87); Red Cell Distribution Width 15 % (10-15); White Blood Count 6.8 10^3/uL (3.5-10.8)
[2020-04-04 09:34] LABS: ABS Basophils 0.1 10^3/ul (0-0.2); ABS Eosinophils 0.6 10^3/ul (0-0.6); ABS Lymphocytes 1.9 10^3/ul (1.0-4.8); ABS Monocytes 0.4 10^3/ul (0-0.8); ABS Neutrophils 3.8 10^3/ul (1.5-7.7); Eosinophil % 8.8 %; Lymphocyte % 28.3 %
[2020-04-04 09:43] LABS: BUN/Creatinine Ratio 17.5 (8-20); Calcium 9.5 mg/dL (8.6-10.3); EGFR African American 31.5 (>60); EGFR Non-African American 26.1 (>60); Potassium 4.2 mmol/L (3.5-5.0)
[2020-04-04 11:03] VITALS: BP 115/50
[2020-04-04] MEDS: Enoxaparin 30 MG/0.3 ML SYR SUBCUT SCH (12:40)
== END 2020-04-04 13:00 | disposition home or self-care (01) | DRG 291 ==
LOC: ED 06:59 → MEDTELE 11:53
PROVIDERS: ADMIT Internal Medicine; ATTEND Internal Medicine